=== PATIENT | female | born 1985 | race Caucasian/White ===

== ENCOUNTER 2017-04-15 18:48 | Emergency (ER) | payer OTHER ==
[2017-04-15] MEDS ORDERED: NORMAL SALINE 1000 ML 1,000 ML IV PRN (18:59)
[2017-04-15] MEDS ORDERED: ONDANSETRON HCL INJ/PF 4 MG/2 ML SDV IV ONE (18:59)
[2017-04-15] MEDS ORDERED: KETOROLAC TROMETHAMINE INJ/PF 30 MG/1 ML SDV IV ONE (18:59)
--- NOTE | 2017-04-15 18:59 | ER Document Report ---
ED Medical Screen (RME) - General Chief Complaint: Abdominal Pain Stated Complaint: ABDOMINAL PAIN,BACK PAIN,VOMITING Time Seen by Provider: 04/15/17 18:57 Mode of Arrival: Ambulatory Information source: Patient TRAVEL OUTSIDE OF THE [place] IN LAST 30 DAYS: No - HPI Patient complains to provider of: Left flank pain Onset: This afternoon Associated Symptoms: Nausea, Vomiting Notes: 04/15/17 18:59 Patient is a 32-year-old female presenting to the emergency room for left-sided flank pain that started a few hours prior to arrival and is associated with nausea and vomiting, with pain radiating down into her vaginal area - Related Data Allergies/Adverse Reactions: No Known Allergies Allergy (Verified 04/15/17 18:52) Past Medical History - Past Medical History Cardiac Medical History: Denies: Hx Coronary Artery Disease, Hx Heart Attack, Hx Hypertension Pulmonary Medical History: Denies: Hx Asthma, Hx Bronchitis, Hx COPD, Hx Pneumonia Neurological Medical History: Denies: Hx Cerebrovascular Accident, Hx Seizures Renal/ Medical History: Denies: Hx Peritoneal Dialysis Musculoskeltal Medical History: Denies Hx Arthritis - Immunizations Hx Diphtheria, Pertussis, Tetanus Vaccination: Yes Physical Exam - Vital signs Vitals: Pulse Resp BP Pulse Ox 62 26 H 129/79 H 100 04/15/17 18:53 04/15/17 18:53 04/15/17 18:53 04/15/17 18:53 Course - Vital Signs Vital signs: Temp Pulse Resp BP Pulse Ox 62 26 H 129/79 H 100 04/15/17 18:53 04/15/17 18:53 04/15/17 18:53 04/15/17 18:53
[2017-04-15 19:44] LABS: ABSOLUTE BASOPHILS # (AUTO) 0.1 10^3/uL (0.0-0.2); ABSOLUTE EOSINOPHILS # (AUTO) 0.2 10^3/uL (0.0-0.6); ABSOLUTE LYMPHOCYTES (AUTO) 2.4 10^3/uL (0.5-4.7); ABSOLUTE MONOCYTES (AUTO) 0.7 10^3/uL (0.1-1.4); ABSOLUTE NEUT (AUTO) 8.1 10^3/uL (1.7-8.2); BASOPHILS % (AUTO) 0.7 % (0-2); EOSINOPHILS % (AUTO) 1.4 % (0-6); HEMATOCRIT 38.8 % (36.0-47.0); HEMOGLOBIN 13.4 g/dL (12.0-15.5); HGB HCT DIFFERENCE 1.4; LYMPHOCYTES % (AUTO) 20.7 % (13-45); MEAN CORPUSCULAR HEMOGLOBIN 29.4 pg (27.0-33.4); MEAN CORPUSCULAR HGB CONC 34.4 g/dL (32.0-36.0); MEAN CORPUSCULAR VOLUME 85 fl (80-97); MONOCYTES % (AUTO) 5.9 % (3-13); RED BLOOD COUNT 4.55 10^6/uL (3.72-5.28); RED CELL DISTRIBUTION WIDTH 12.7 % (11.5-14.0); SEGMENTED NEUTROPHILS % (AUTO) 71.3 % (42-78); WHITE BLOOD COUNT 11.4 10^3/uL (4.0-10.5)
[2017-04-15 19:57] LABS: ALANINE AMINOTRANSFERASE 21 U/L (9-52); ALBUMIN 4.3 g/dL (3.5-5.0); ALKALINE PHOSPHATASE 76 U/L (38-126); ANION GAP 15 (5-19); ASPARTATE AMINO TRANSFERASE 20 U/L (14-36); BILIRUBIN,DIRECT 0.4 mg/dL (0.0-0.4); BILIRUBIN,TOTAL 0.7 mg/dL (0.2-1.3); BLOOD UREA NITROGEN 9 mg/dL (7-20); CALCIUM 9.8 mg/dL (8.4-10.2); CARBON DIOXIDE 22 mmol/L (22-30); CHLORIDE 105 mmol/L (98-107); CREATININE RESULT 1.01 mg/dL (0.52-1.25); GLUCOSE 114 mg/dL (75-110); LIPASE 96.6 U/L (23-300); POTASSIUM 3.7 mmol/L (3.6-5.0); SODIUM 141.7 mmol/L (137-145); TOTAL PROTEIN 7.6 g/dL (6.3-8.2)
[2017-04-15 20:35] LABS: AMORPHOUS SEDIMENT,URINE TRACE /HPF; APPEARANCE,URINE CLOUDY; BILIRUBIN,URINE NEGATIVE (NEGATIVE); GLUCOSE, URINE NEGATIVE (NEGATIVE); KETONES,URINE TRACE mg/dL (NEGATIVE); LEUKOCYTE ESTERASE,URINE NEGATIVE (NEGATIVE); NITRITE,URINE NEGATIVE (NEGATIVE); PROTEIN,URINE 100 mg/dL (NEGATIVE); URINE SPECIFIC GRAVITY 1.028; UROBILINOGEN,URINE NEGATIVE mg/dL (<2.0)
--- NOTE | 2017-04-15 20:36 | ER Document Report ---
ED General - General Chief Complaint: Abdominal Pain Stated Complaint: ABDOMINAL PAIN,BACK PAIN,VOMITING Time Seen by Provider: 04/15/17 18:57 Mode of Arrival: Ambulatory Notes: Patient is a 32-year-old female without past medical history, no prior surgical history who presents with acute onset of lower abdominal cramping and vaginal pain. States this started abruptly around 4:00 in the afternoon and has moderately dissipated since that time. States she has had one similar episode in the past that was thought to be due to a NuvaRing. She did remove the NuvaRing today but did not have any improvement of that pain. The pain is described as a cramping, stabbing, moderate to severe pain in her lower abdomen radiating into her vagina. She denies any vaginal bleeding or discharge. No dysuria or hematuria. She denies any fever or constitutional symptoms. She was seen in [facility] for these symptoms in the past. TRAVEL OUTSIDE OF THE [place] IN LAST 30 DAYS: No - Related Data Allergies/Adverse Reactions: No Known Allergies Allergy (Verified 04/15/17 18:52) Past Medical History - General Information source: Patient - Social History Smoking Status: Never Smoker Frequency of alcohol use: None Drug Abuse: None Lives with: Spouse/Significant other Family History: Reviewed & Not Pertinent - Past Medical History Cardiac Medical History: Denies: Hx Coronary Artery Disease, Hx Heart Attack, Hx Hypertension Pulmonary Medical History: Denies: Hx Asthma, Hx Bronchitis, Hx COPD, Hx Pneumonia Neurological Medical History: Denies: Hx Cerebrovascular Accident, Hx Seizures Renal/ Medical History: Denies: Hx Peritoneal Dialysis Musculoskeltal Medical History: Denies Hx Arthritis Past Surgical History: Reports: Hx Orthopedic Surgery - Right Knee x8 - Immunizations Hx Diphtheria, Pertussis, Tetanus Vaccination: Yes Review of Systems - Review of Systems Notes: Constitutional: Negative for fever. HENT: Negative for sore throat. Eyes: Negative for visual changes. Cardiovascular: Negative for chest pain. Respiratory: Negative for shortness of breath. Gastrointestinal: Positive for lower abdominal pain Genitourinary: Positive for vaginal pain Musculoskeletal: Negative for back pain. Skin: Negative for rash. Neurological: Negative for headaches, weakness or numbness. 10 point ROS negative except as marked above and in HPI. Physical Exam - Vital signs Vitals: Pulse Resp BP Pulse Ox 62 26 H 129/79 H 100 04/15/17 18:53 04/15/17 18:53 04/15/17 18:53 04/15/17 18:53 Interpretation: Tachypneic Notes: PHYSICAL EXAMINATION: GENERAL: Well-appearing, well-nourished and in no acute distress. HEAD: Atraumatic, normocephalic. EYES: Pupils equal round and reactive to light, extraocular movements intact, sclera anicteric, conjunctiva are normal. ENT: nares patent, oropharynx clear without exudates. Moist mucous membranes. NECK: Normal range of motion, supple without lymphadenopathy LUNGS: Breath sounds clear to auscultation bilaterally and equal. No wheezes rales or rhonchi. HEART: Regular rate and rhythm without murmurs ABDOMEN: Soft, nontender, normoactive bowel sounds. No guarding, no rebound. No masses appreciated. : Scant vaginal discharge. No cervical motion tenderness. No focal adnexal or suprapubic tenderness. EXTREMITIES: Normal range of motion, no pitting or edema. No cyanosis. NEUROLOGICAL: No focal neurological deficits. Moves all extremities spontaneously and on command. PSYCH: Normal mood, normal affect. SKIN: Warm, Dry, normal turgor, no rashes or lesions noted. Course - Re-evaluation Re-evalutation: 04/15/17 20:35 Patient presents with acute onset of suprapubic and low back pain several hours prior to arrival. Vitals at time of assessment are within normal limits without a fever, tachycardia or hypotension. Abdominal exam is without any focal tenderness. She has no tenderness in the right lower quadrant, left lower quadrant or right upper quadrant. Mild suprapubic abdominal tenderness on palpation. Bedside ultrasound does not show any urine in the bladder and patient states she has an urge to urinate but is unable to do so. She last urinated 5 hours ago. She has no flank tenderness. She has had a history of similar symptoms in the past but was mostly localized to the vagina and did resolve after removal of the NuvaRing. She again removed the NuvaRing today and did not have any relief of her pain. Differential diagnosis includes possible pelvic inflammatory disease, ovarian cyst, less likely acute ovarian torsion, cystitis, pyelonephritis or nephrolithiasis. Will await labs, perform pelvic exam, transvaginal ultrasound and reassess. 04/15/17 22:42 Transvaginal ultrasound is unremarkable. Labs all unremarkable. Patient's pain remains improved. She is urinated here without any difficulty. At this time the exact etiology of her abdominal pain and vaginal pain is unclear but may be related to pelvic muscle spasming. I have had a risks and benefits conversation with the patient regarding CT imaging of the abdomen and pelvis at this time. We discussed, based on today's exam and labs there is a possibility that they could have a diagnosis that could be better clarified by CT and that this could possibly manager change. We discussed the risks of radiation to the abdomen and pelvis. We discussed the alternative of close follow-up with their primary care physician for a recheck of the abdomen within 24 hours as well as reasons to return to the emergency department. After this conversation , the patient has elected to avoid CT imaging of the abdomen and pelvis at this time. They have capacity. They have verbalized the importance of close follow- up as well as reasons to return to the emergency department including worsening abdominal pain, fever, persistent vomiting, or any other symptoms that are worrisome to them. - Vital Signs Vital signs: Temp Pulse Resp BP Pulse Ox 98.9 F 64 16 124/75 97 04/15/17 22:45 04/15/17 22:45 04/15/17 22:45 04/15/17 22:45 04/15/17 22:45 - Laboratory Result Diagrams: 04/15/17 19:35 04/15/17 17:23 Laboratory results interpreted by me: 04/15/17 04/15/17 04/15/17 17:23 19:35 20:05 WBC 11.4 H Glucose 114 H Urine Protein 100 H Urine Ketones TRACE H Urine Ascorbic Acid 40 H - Diagnostic Test Radiology reviewed: Reports reviewed Discharge - Discharge Clinical Impression: Vaginal pain, Lower abdominal pain Condition: Good Disposition: HOME, SELF-CARE Additional Instructions: You have been seen in the Emergency Department (ED) for abdominal pain. Your evaluation did not identify a clear cause of your symptoms but was generally reassuring. For your pain: Take ibuprofen 600 mg and acetaminophen 1000 mg every 6 hours together as needed for pain. Please follow up with your doctor as soon as possible regarding today's emergent visit and the symptoms that are bothering you. Return to the ED if your abdominal pain worsens or fails to improve, you develop bloody vomiting, bloody diarrhea, you are unable to tolerate fluids due to vomiting, fever greater than 101, or other symptoms that concern you. Referrals: WAYNE GREEN MD [ACTIVE STAFF] - Follow up in 3-5 days
--- NOTE | 2017-04-15 22:13 | RADIOLOGY REPORT (SQ) ---
EXAM DESCRIPTION: U/S NON OB PEL TV W/DOPPLER COMPLETED DATE/TIME: 04/15/2017 10:01 pm REASON FOR STUDY: lower abdominal pain, vaginal pain COMPARISON: None. TECHNIQUE: Dynamic and static grayscale images acquired of the pelvis via transvaginal approach and recorded on PACS. Additional selected color Doppler and spectral images recorded. LIMITATIONS: None. FINDINGS: UTERUS: Contour normal. No mass. ENDOMETRIAL STRIPE: No focal or generalized thickening. No masses. CERVIX: No nabothian cysts. RIGHT OVARY: No abnormal masses. RIGHT OVARY DOPPLER: Normal arterial vascular flow without evidence for torsion. LEFT OVARY: No abnormal masses. LEFT OVARY DOPPLER: Normal arterial vascular flow without evidence for torsion. FREE FLUID: None noted. OTHER: No other significant finding. MEASUREMENTS: UTERUS: 7.2 x 4.3 x 2.9 cm ENDOMETRIAL STRIPE: 1.2 mm RIGHT OVARY: 2.4 x 2.0 x 2.3 cm LEFT OVARY: 2.7 x 2.3 x 1.9 cm IMPRESSION: NORMAL TRANSVAGINAL PELVIC ULTRASOUND. TECHNICAL DOCUMENTATION: JOB ID: [id number] [facility]- All Rights Reserved
[2017-04-15 22:23] LABS: CHLAM PCR NOT DETECTED (NOT DETECT)
[2017-04-15 22:46] VITALS: BP 124/75
== END 2017-04-15 22:52 | disposition home or self-care (01) ==
LOC: ER 18:48
DX: R10.30 Lower abdominal pain, unspecified (principal); R10.2 Pelvic and perineal pain; R10.9 Unspecified abdominal pain; M54.9 Dorsalgia, unspecified; R11.10 Vomiting, unspecified
CPT/HCPCS: 99284; 96361; 96374; 96375; 36415; 87086; 87210; 83690; 84703; 85025; 80053; 81001; 87491; 87591; 76830; 93976; J1885; J2405; J7030

== ENCOUNTER 2018-06-23 05:23 | Outpatient (CLI) | payer OTHER ==
[2018-06-23 05:52] LABS: APPEARANCE,URINE SLIGHTLY-CLOUDY; BILIRUBIN,URINE NEGATIVE (NEGATIVE); COLOR,URINE YELLOW; GLUCOSE, URINE NEGATIVE (NEGATIVE); KETONES,URINE NEGATIVE (NEGATIVE); LEUKOCYTE ESTERASE,URINE NEGATIVE (NEGATIVE); NITRITE,URINE NEGATIVE (NEGATIVE); PROTEIN,URINE NEGATIVE (NEGATIVE); URINE SPECIFIC GRAVITY 1.005; UROBILINOGEN,URINE NEGATIVE mg/dL (<2.0)
[2018-06-23 06:07] LABS: URINE AMPHETAMINES SCREEN NEGATIVE; URINE BARBITURATES SCREEN NEGATIVE; URINE BENZODIAZEPINES SCREEN NEGATIVE; URINE COCAINE SCREEN NEGATIVE; URINE MARIJUANA (THC) SCREEN NEGATIVE; URINE METHADONE SCREEN NEGATIVE; URINE PHENCYCLIDINE SCREEN NEGATIVE
== END 2018-06-23 06:28 | disposition home or self-care (01) ==
LOC: LC 05:23
PROVIDERS: ATTEND Obstetrics & Gynecology
PROC: 4A1HXCZ Monitoring of Products of Conception, Cardiac Rate, External Approach (ICD-10-PCS; principal; 2018-06-23)
DX: O36.8130 Decreased fetal movements, third trimester, not applicable or unspecified (principal); Z3A.38 38 weeks gestation of pregnancy
CPT/HCPCS: 59025; 80307; 81005

== ENCOUNTER 2018-07-04 11:14 | Outpatient (CLI) | payer OTHER ==
--- NOTE | 2018-07-04 11:27 | Non Stress Test Report ---
Non Stress Test Datetime Report Generated by CPN: 07/04/2018 11:27 DEMOGRAPHIC Test Number: 1 EGA NST: 38.3 INDICATION Indication for Study: Decreased Movement; Ordered by Provider VITAL SIGNS Temperature - NST: 98.3 Pulse - NST: 77 RESP - NST: 18 NBPSYS NST: 112 NBPDIA NST: 67 MONITORING Monitor Explained: Monitor Explained; Test Explained; Patient Verbalized Understanding Time on Monitor: 06/23/2018 05:45 Time off Monitor: 06/23/2018 06:20 NST Duration: 35 NST INTERVENTIONS NST Interventions: PO Hydration BABY A: [id number] Movement : Decreased Contraction Frequency : 0 Contraction Frequency : none FHR Baseline : 135 Accelerations : 15X15 Decelerations : None Variability : Moderate 6-25bpm NST Review: Meets Criteria for Reactive NST NST Review: Meets Criteria for Reactive NST NST Review: Meets Criteria for Reactive NST NST Review and Verified By : SABRINA BLACKT Review and Verified By : RN Kossmann NST Results: Reactive NST Results: Reactive NST REPORT Report Trigger: Send Report
== END 2018-07-04 12:29 | disposition home or self-care (01) ==
LOC: LC 11:14
PROVIDERS: ATTEND Student in an Organized Health Care Education/Training Program
PROC: 4A1HXCZ Monitoring of Products of Conception, Cardiac Rate, External Approach (ICD-10-PCS; principal; 2018-07-04)
DX: Z34.93 Encounter for supervision of normal pregnancy, unspecified, third trimester (principal); Z3A.40 40 weeks gestation of pregnancy
CPT/HCPCS: 59025

== ENCOUNTER 2018-07-04 17:21 | Inpatient (IN) | payer OTHER ==
[2018-07-04] MEDS ORDERED: DINOPROSTONE 10 MG VAGINAL INSERT.SR PV PRN (20:05)
[2018-07-04] MEDS ORDERED: RINGERS SOLUTION,LACTATED 1,000 ML IV ONE (20:05)
--- NOTE | 2018-07-04 20:28 | Admission Physical ---
Datetime Report Generated by CPN: 07/04/2018 20:28 CURRENT ADMISSION Chief Complaint: Scheduled Induction of Labor Indication for Induction: Oligohydramnios Admit Impression : Term, Intrauterine ; No Active Labor; Intact Membranes; Induction of Labor Admit Plan: Admit to Unit; Initiate Labor Induction Protocol ALLERGIES Medication Allergies: No Medication Allergies: No Known Allergies (06/23/2018) Latex: No Latex Allergies OBSTETRICAL HISTORY EDC: 07/04/2018 00:00 : 2 Para: 1 Term: 1 : 0 SAB: 0 IAB: 0 Ectopic: 0 Livin Cesareans: 0 VBACs: 0 Multiple Births: 0 ART Treatment: No Hx Loss/Stillborn: No Depression/PP Depression: No Current Procedures: Ultrasound; NST Obstetrical History Comments: G1 - 06/20/16- 39.5wk Male infant, 7lbs 1oz G2 - SEE RECORDS Alcohol: No Marijuana : No Cocaine: No Other Illicit Drugs: No Cigarettes: Never Smoker. 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 Hx of abnormal paps, colp, CKC INFECTIOUS HISTORY Gonorrhea: No Genital Herpes: No Chlamydia: No Tuberculosis: No Syphilis: No Hepatitis: No HIV/AIDS Exposure: No Rash or Viral Illness: No HPV: No PHYSICAL EXAM General: Normal HEENT: Normal Neurologic: Normal Thyroid: Deferred Heart: Normal Lungs: Normal Breast: Deferred Back: Normal Abdomen: Normal Genitourinary Exam: Normal Extremities: Normal DTRs: Normal Pelvic Type: Adequate Vital Signs: Reviewed VAGINAL EXAM Dilatation: 1 Effacement: 0 Station: -3 Contraction Comments: none MEMBRANES Membranes: Intact FETUS A EGA: 40.0 Monitoring: External US FHR- Baseline: 145 Variability: Moderate 6-25bpm Accelerations: 15X15 Decelerations: None FHR Category: Category I Presentation: Vertex Admit Comment: 33yo at 40+0ega presents for scheduled IOL due to low ramón (SDP is 3). Follows [facility] due to EPDS 15 at 28wks. 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 GBS negative. Admit for cervidil based on cervical exam in office. Anticipate . Reassuring FWB. PLANS FOR LABOR AND DELIVERY Labor and Delivery: None Pain Management: Natural Feeding Preference: Both Circumcision: N/A INFORMED CONSENT Informed Consent Obtained: Vaginal Delivery; Risks, Benefits and Alternatives Discussed Signature: with User ID: [email or web address]
[2018-07-04] MEDS ORDERED: ACETAMINOPHEN 325 MG TABLET PO PRN (20:34)
[2018-07-04 20:35] LABS: ABSOLUTE EOSINOPHILS # (AUTO) 0.2 10^3/uL (0.0-0.6); ABSOLUTE LYMPHOCYTES (AUTO) 2.5 10^3/uL (0.5-4.7); ABSOLUTE NEUT (AUTO) 8.6 10^3/uL (1.7-8.2); BASOPHILS % (AUTO) 0.2 % (0-2); EOSINOPHILS % (AUTO) 1.5 % (0-6); HEMATOCRIT 33.6 % (36.0-47.0); HEMOGLOBIN 11.7 g/dL (12.0-15.5); LYMPHOCYTES % (AUTO) 20.3 % (13-45); MEAN CORPUSCULAR HEMOGLOBIN 30.2 pg (27.0-33.4); MEAN CORPUSCULAR HGB CONC 34.8 g/dL (32.0-36.0); MEAN CORPUSCULAR VOLUME 87 fl (80-97); MONOCYTES % (AUTO) 7.8 % (3-13); PLATELET COUNT 213 10^3/uL (150-450); RED BLOOD COUNT 3.87 10^6/uL (3.72-5.28); RED CELL DISTRIBUTION WIDTH 14.3 % (11.5-14.0); SEGMENTED NEUTROPHILS % (AUTO) 70.2 % (42-78); TOTAL CELLS COUNTED % (AUTO) 100 %; WHITE BLOOD COUNT 12.2 10^3/uL (4.0-10.5)
[2018-07-04] MEDS: RINGERS SOLUTION,LACTATED 1,000 ML IV PRN (20:40)
[2018-07-04 20:41] LABS: APPEARANCE,URINE SLIGHTLY-CLOUDY; BILIRUBIN,URINE NEGATIVE (NEGATIVE); COLOR,URINE YELLOW; GLUCOSE, URINE NEGATIVE (NEGATIVE); KETONES,URINE NEGATIVE (NEGATIVE); LEUKOCYTE ESTERASE,URINE NEGATIVE (NEGATIVE); NITRITE,URINE NEGATIVE (NEGATIVE); PROTEIN,URINE NEGATIVE (NEGATIVE); URINE SPECIFIC GRAVITY 1.008; UROBILINOGEN,URINE NEGATIVE mg/dL (<2.0)
[2018-07-04] MEDS ORDERED: DINOPROSTONE 10 MG VAGINAL INSERT.SR ONE (20:53)
[2018-07-04] MEDS ORDERED: ZOLPIDEM TARTRATE 5 MG TABLET PO ONE (20:55)
[2018-07-04 20:57] LABS: URINE AMPHETAMINES SCREEN NEGATIVE; URINE BARBITURATES SCREEN NEGATIVE; URINE BENZODIAZEPINES SCREEN NEGATIVE; URINE COCAINE SCREEN NEGATIVE; URINE MARIJUANA (THC) SCREEN NEGATIVE; URINE METHADONE SCREEN NEGATIVE; URINE PHENCYCLIDINE SCREEN NEGATIVE
[2018-07-04] MEDS ORDERED: ZOLPIDEM TARTRATE 5 MG TABLET ONE (20:58)
[2018-07-05] MEDS: RINGERS SOLUTION,LACTATED 1,000 ML IV PRN ×3 (05:48→18:11)
--- NOTE | 2018-07-05 11:14 | L&D Progress Notes ---
PROGRESS NOTES Datetime Report Generated by CPN: 07/05/2018 11:13 PROGRESS NOTE Impression: Reassuring Heart Rate Plan: Induction Informed Consent Obtained: Vaginal Delivery Informed Consent Obtained: Vaginal Delivery; Risks, Benefits and Alternatives Discussed Comment: VE= 1/70/vtx/-2, did not tolerate exam well does not want epidural Cat 1 strip Start Pitocin VAGINAL EXAM Dilatation: 1 Effacement: 0 Station: -3 Contractions: none LAST VAGINAL EXAM-NURSING Dilitation: 1.0 Dilitation: 0.0 Effacement: 70 Effacement: thick Station: -2 Station: high Contractions: Pt denies UCs. MEMBRANES Membranes: Intact FETUS A Monitoring: External US Presentation: Vertex SIGNATURE SIGNATURE: [id number];[id number];[id number] SIGNATURE: [id number];14,[id number] SIGNATURE: [id number] Assignment: Miryam Gamble MD Signature: with User ID: [email or web address] : with User ID: [email or web address]
[2018-07-05] MEDS ORDERED: OXYTOCIN/NORMAL SALINE 20 UNIT/1,000 ML RTUINJ ONE (11:20)
[2018-07-05] MEDS ORDERED: FAMOTIDINE 20 MG TABLET PO ONE (12:26)
[2018-07-05] MEDS ORDERED: FAMOTIDINE 20 MG TABLET ONE (12:32)
[2018-07-05] MEDS ORDERED: MISOPROSTOL 0.2 MG TABLET ONE (13:37)
[2018-07-05] MEDS ORDERED: LIDOCAINE 1% INJ-PF (10 MG/ML) 30 ML SDV ONE (13:37)
--- NOTE | 2018-07-05 14:01 | L&D Progress Notes ---
PROGRESS NOTES Datetime Report Generated by CPN: 07/05/2018 14:01 PROGRESS NOTE Impression: Normal Progression of Labor; Reassuring Heart Rate Procedures: Artificial ROM; Sterile Vag Exam Plan: Continue Present Management; Induction; Anticipate Vaginal Delivery Comment: VE= 270/vtx/0, FSE applied, no fluid, uc's q 3 min, breathing with uc's Cat 1 strip VAGINAL EXAM Dilitation: 2.0 Effacement: 70 Station: -1 FETUS C SIGNATURE: [id number];14,[id number];10,[id number] Assignment: Miryam Gamble MD Signature: with User ID: Nydia : with User ID: [email or web address]
[2018-07-05] MEDS ORDERED: NALBUPHINE HCL INJ 10 MG/1 ML AMPULE ONE (14:31)
[2018-07-05] MEDS ORDERED: NALBUPHINE HCL INJ 10 MG/1 ML AMPULE INJ ONE (14:32)
--- NOTE | 2018-07-05 16:26 | L&D Progress Notes ---
PROGRESS NOTES Datetime Report Generated by CPN: 07/05/2018 16:25 PROGRESS NOTE Procedures: Sterile Vag Exam Plan: Induction Vital Signs : Reviewed; Within Normal Limits Comment: moaning with uc's, variables with each uc, declines epidural, VE 5/100/vtx.-2 VAGINAL EXAM Dilitation: 5.0 Dilitation: 4.0 Effacement: 100 Effacement: 80 Station: -1 Station: -1 FETUS A Monitoring: External US Decelerations: Variable FETUS C SIGNATURE: [id number];[id number];13,[id number] Assignment: Miryam Gamble MD Signature: with User ID: [email or web address] : with User ID: [email or web address]
--- NOTE | 2018-07-05 17:01 | L&D Progress Notes ---
PROGRESS NOTES Datetime Report Generated by CPN: 07/05/2018 17:01 PROGRESS NOTE Comment: Pitocin turned off, O2 via mask, placed in knee chest, IVF, for deep variables and early decelerations, mod variability requesting epidural, hsb at BS FETUS C SIGNATURE: [id number];[id number];10,[id number] Assignment: Miryam Gamble MD Signature: with User ID: [email or web address] : with User ID: [email or web address]
[2018-07-05] MEDS ORDERED: FENTANYL/BUPIVACAINE/NS/PF 300 MCG/150 ML RTUINJ EPI ONE (17:15)
[2018-07-05] MEDS ORDERED: EPHEDRINE SULFATE INJ 50 MG/1 ML AMPULE ONE (17:15)
[2018-07-05] MEDS ORDERED: BUPIVACAINE HCL 0.5 % INJ/PF 30 ML SDV ONE (17:15)
[2018-07-05] MEDS ORDERED: ACETAMINOPHEN WITH CODEINE #3 TABLET PO PRN (20:19)
[2018-07-05] MEDS ORDERED: OXYTOCIN/NORMAL SALINE 20 UNIT/1,000 ML RTUINJ IV PRN (20:19)
[2018-07-05] MEDS ORDERED: ZOLPIDEM TARTRATE 5 MG TABLET PO PRN (20:19)
[2018-07-05] MEDS ORDERED: MEASLES,MUMPS&RUBELLA VACC/PF 0.5 ML VIAL SUBCUT PRN (20:19)
[2018-07-05] MEDS ORDERED: DIBUCAINE 1% OINTMENT 28 GM TP PRN (20:19)
[2018-07-05] MEDS ORDERED: BENZOCAINE/MENTHOL AEROSOL SPRAY 56 ML TOP PRN (20:19)
[2018-07-05] MEDS ORDERED: DIPH/PERTUSS(ACELL)/TETANUS VAC/PF 0.5 ML SYR (>=10YO) IM PRN (20:19)
--- NOTE | 2018-07-05 22:09 | Delivery Summary ---
Del Sum A-C Datetime Report Generated by CPN: 07/05/2018 22:08 DELIVERY PERSONNEL DELIVERY PERSONNEL: [id number] Delivery Doctor:: Miryam Gamble MD Labor and Delivery Nurse:: Ana M Potts RN Labor and Delivery Nurse:: Evelyn Mclain RN Manager Clinical/PRECINCT CAPTAIN: Alex Ertel, PRECINCT CAPTAIN MATERNAL INFORMATION Delivery Anesthesia: Epidural Medications After Delivery: Pitocin Drip 20 Units/1000ml NSS Estimated Blood Loss (ml): 50 ml Maternal Complications: None Provider Comments: of a viable female at 1957 with an OA presentation; APGARS 8,9; No lacerations LABOR SUMMARY EDC: 07/04/2018 00:00 No. Babies in Womb: 1 Attempted: No Labor Anesthesia: Epidural LABOR INFORMATION Reason for Induction: Oligohydramnios Onset of Labor: 07/05/2018 11:30 Complete Dilatation: 07/05/2018 19:41 Cervical Ripening Agents: Cervidil Oxytocin: Induction Group B Beta Strep: Negative Antibiotics # of Doses: 0 Steroids Given: None Reason Steroids Not Administered: Not Applicable MEMBRANES Membranes Rupture Method: Artificial Rupture of Membranes: 07/05/2018 13:49 Length of Rupture (hr): 6.17 Amniotic Fluid Color: Clear Amniotic Fluid Amount: None Amniotic Fluid Odor: Normal STAGES OF LABOR Stage 1 hr: 8 Stage 1 min: 11 Stage 2 hr: 0 Stage 2 min: 18 Stage 3 hr: 0 Stage 3 min: 5 Total Time in Labor hr: 8 Total Time in Labor min: 34 VAGINAL DELIVERY Episiotomy: None Laceration #1: None Laceration Extension #1: N/A Laceration Repair: Not Applicable Sponge Count Correct: N/A Sharps Count Correct: N/A CSECTION DELIVERY Primary Indication: N/A Secondary Indication: N/A CSection Incidence: N/A Labor: N/A Elective: N/A CSection Incision: N/A BABY A INFORMATION Infant Delivery Date/Time: 07/05/2018 19:59 Method of Delivery: Vaginal Born in Route : No : N/A Forceps: N/A Vacuum Extraction: N/A Shoulder Dystocia : No PRESENTATION/POSITION BABY A Presentation: Cephalic Cephalic Presentation: Vertex Vertex Position: Left Occipital Anterior Breech Presentation: N/A PLACENTA INFORMATION BABY A Placenta Delivery Time : 07/05/2018 20:04 Placenta Method of Delivery: Spontaneous Placenta Status: Delivered SCORES BABY A Heart Rate 1 min: >100 bpm Resp Effort 1 min: Good Cry Reflex Irritability 1 min: Cough or Sneeze or Pulls Away Muscle Tone 1 min: Active Motion Color 1 min: Blue/Pale Resuscitation Effort 1 min: Tactile Stimulation SCORE 1 MIN: 8 Heart Rate 5 min: >100 bpm Resp Effort 5 min: Good Cry Reflex Irritability 5 min: Cough or Sneeze or Pulls Away Muscle Tone 5 min: Active Motion Color 5 min: Body [place], Extremities Blue Resuscitation Effort 5 min: Tactile Stimulation SCORE 5 MIN: 9 INFORMATION BABY A Gestational Age at Delivery: 40.1 Gestational Status: Full Term- 39- 40.6 Weeks Infant Outcome : Liveborn Condition : Stable Sex: Female IDENTIFICATION BABY A Infant Verification Date/Time: 07/05/2018 20:27 ID Band Number: [id number] Mother's Name Verified: Yes Infant RN Verifying : Marycarmen Potts, RNC _ Alicia Antony, RN WEIGHT/LENGTH BABY A Infant Birthweight (gm): 3490 Infant Weight (lb): 7 Weight (oz): 11 Infant Length (in): 19.50 Length (cm): 49.53 CORD INFORMATION BABY A No. Cord Vessels: 3 Nuchal Cord : N/A Cord Blood Taken: Yes-For Eval (Mom's Blood Type - or O+) Infant Suction: Mouth; Nose ASSESSMENT BABY A Complications: Oligohydramnios Physical Findings at Delivery: Within Normal Limits Respirations: Appears Normal Skin to Skin: Yes Referral Agent/ALS Called : No Care By: Anibal Mclain RN Transferred To: Remains with Mother BABY B INFORMATION : N/A SIGNATURES Signature: with User ID: [email or web address]
[2018-07-05] MEDS: IBUPROFEN 800 MG TABLET PO SCH (22:50)
[2018-07-06] MEDS: ACETAMINOPHEN WITH CODEINE #3 TABLET PO PRN ×2 (02:29→09:55)
[2018-07-06] MEDS: IBUPROFEN 800 MG TABLET PO SCH ×3 (05:01→21:47)
[2018-07-06 07:22] LABS: HEMATOCRIT 31.6 % (36.0-47.0); HEMOGLOBIN 11.1 g/dL (12.0-15.5); MEAN CORPUSCULAR HEMOGLOBIN 30.3 pg (27.0-33.4); MEAN CORPUSCULAR HGB CONC 35.1 g/dL (32.0-36.0); MEAN CORPUSCULAR VOLUME 87 fl (80-97); PLATELET COUNT 194 10^3/uL (150-450); RED BLOOD COUNT 3.65 10^6/uL (3.72-5.28); RED CELL DISTRIBUTION WIDTH 14.1 % (11.5-14.0)
--- NOTE | 2018-07-06 09:22 | PDOC PROGRESS REPORT ---
Subjective-OB Progress Note for:: 07/06/18 Physical Exam (OB) Vital Signs: Temp Pulse Resp BP Pulse Ox 98.0 F 83 20 127/65 H 96 07/06/18 08:36 07/06/18 08:36 07/06/18 08:36 07/06/18 08:36 07/06/18 08:36 Intake & Output 07/05/18 07/06/18 07/07/18 06:59 06:59 06:59 Intake Total 1000 1133 Balance 1000 1133 Weight 99.5 kg - General General Appearance: Alert - Lochia Lochia Amount: Scant < 10 ml Lochia Color: Rubra/Red - Abdomen Description: Tender, Soft Hernia Present: No Flatus Presence: Present Fundal Description: Firm, Midline Fundal Height: u/u - u/2 - Extremities Calf: Normal Objective-Diagnostic Laboratory: 07/06/18 06:52 07/06/18 06:52 WBC 14.0 H RBC 3.65 L Hgb 11.1 L Hct 31.6 L MCV 87 MCH 30.3 MCHC 35.1 RDW 14.1 H Plt Count 194 Assessment and Plan(PN) - Assessment and Plan (1) Oligohydramnios Qualifiers: Fetus number: single or unspecified fetus Trimester: third trimester Qualified Code(s): O41.03X0 - Oligohydramnios, third trimester, not applicable or unspecified Is this a current diagnosis for this admission?: Yes (2) Vaginal delivery Is this a current diagnosis for this admission?: Yes Plan:: vag delivery - Time Spent with Patient Time with patient: Less than 15 minutes Medications reviewed and adjusted accordingly: Yes - Disposition Anticipated Discharge: Home Within: within 24 hours
[2018-07-06] MEDS: PRENATAL VITAMIN W DHA CAPSULE PO SCH (09:53)
[2018-07-06] MEDS: SENNOSIDES/DOCUSATE 8.6-50 MG 1 EACH TABLET PO SCH (09:53)
[2018-07-06] MEDS: DOCUSATE SODIUM 100 MG CAPSULE PO SCH ×2 (09:53→18:39)
[2018-07-06] MEDS: FERROUS SULFATE 325 MG TABLET PO SCH ×2 (09:53→18:39)
[2018-07-07] MEDS: IBUPROFEN 800 MG TABLET PO SCH (05:44)
[2018-07-07 08:29] VITALS: BP 132/78
--- NOTE | 2018-07-07 09:40 | PDOC DISCHARGE SUMMARY ---
Final Diagnosis Discharge Date: 07/07/18 - Final Diagnosis (1) Oligohydramnios Is this a current diagnosis for this admission?: Yes (2) Vaginal delivery Is this a current diagnosis for this admission?: Yes Discharge Data - Discharge Medication Home Medications: Pnv,Calcium 72/Iron/Folic Acid [Pnv Plus Multivit Tab] 1 tab PO DAILY 04/11/16 Reason(s) for Admission: Induction of Labor Procedures: NST Intrapartum Procedure(s): Spontaneous Vaginal Delivery - Diagnosis Test Laboratory: Temp Pulse Resp BP Pulse Ox 98.0 F 74 16 132/78 H 97 07/07/18 07:48 07/07/18 07:48 07/07/18 07:48 07/07/18 07:48 07/07/18 07:48 07/04/18 07/04/18 07/06/18 19:58 20:20 06:52 RBC 3.87 3.65 L Hgb 11.7 L 11.1 L Hct 33.6 L 31.6 L Urine Opiates Screen NEGATIVE - Discharge information/Instructions Discharge Activity: Balance Activity w/Rest, Pelvic Rest Discharge Diet: Regular Disposition: HOME, SELF-CARE Follow up with: [facility] in: 3, 4, Weeks
[2018-07-07] MEDS: PRENATAL VITAMIN W DHA CAPSULE PO SCH (10:29)
[2018-07-07] MEDS: DOCUSATE SODIUM 100 MG CAPSULE PO SCH (10:29)
[2018-07-07] MEDS: FERROUS SULFATE 325 MG TABLET PO SCH (10:29)
[2018-07-07] MEDS: SENNOSIDES/DOCUSATE 8.6-50 MG 1 EACH TABLET PO SCH (10:29)
== END 2018-07-07 14:00 | disposition home or self-care (01) | DRG 807 ==
LOC: LR 19:46 → 2S 07-05 22:15
PROVIDERS: ADMIT Obstetrics & Gynecology; ATTEND Obstetrics & Gynecology
PROC: 10E0XZZ Delivery of Products of Conception, External Approach (ICD-10-PCS; principal; 2018-07-05)
DX: O41.03X0 Oligohydramnios, third trimester, not applicable or unspecified (principal); Z37.0 Single live birth; Z3A.40 40 weeks gestation of pregnancy
CPT/HCPCS: 36415; 80307; 81005; 85025; 85027; 86592; 86850; 86900; 86901; 94760; J2300; J2590; J3010; J3490

== ENCOUNTER 2018-08-11 14:13 | Emergency (ER) | payer OTHER ==
--- NOTE | 2018-08-11 14:32 | ER Document Report ---
ED Medical Screen (RME) - General Chief Complaint: Pain All Over Stated Complaint: BODYACHE Time Seen by Provider: 08/11/18 14:26 Mode of Arrival: Ambulatory Information source: Patient TRAVEL OUTSIDE OF THE [place] IN LAST 30 DAYS: No - HPI Patient complains to provider of: joint stiffness Onset: Other - pt. is 5 weeks and has been having increasing joint stiffnesss in upper and lowe r extremities, neck and back chele. later in the day. - Related Data Allergies/Adverse Reactions: No Known Allergies Allergy (Verified 08/11/18 14:13) Past Medical History - Past Medical History Cardiac Medical History: Denies: Hx Coronary Artery Disease, Hx Heart Attack, Hx Hypertension Pulmonary Medical History: Denies: Hx Asthma, Hx Bronchitis, Hx COPD, Hx Pneumonia Neurological Medical History: Denies: Hx Cerebrovascular Accident, Hx Seizures Renal/ Medical History: Denies: Hx Peritoneal Dialysis Musculoskeltal Medical History: Denies Hx Arthritis Past Surgical History: Reports: Hx Orthopedic Surgery - Right Knee x8 - Immunizations Hx Diphtheria, Pertussis, Tetanus Vaccination: Yes Physical Exam - Vital signs Vitals: Temp Pulse Resp BP Pulse Ox 98 F 76 18 130/87 H 98 08/11/18 14:15 08/11/18 14:15 08/11/18 14:15 08/11/18 14:15 08/11/18 14:15 Course - Vital Signs Vital signs: Temp Pulse Resp BP Pulse Ox 98 F 76 18 130/87 H 98 08/11/18 14:15 08/11/18 14:15 08/11/18 14:15 08/11/18 14:15 08/11/18 14:15
[2018-08-11 15:09] LABS: ABSOLUTE BASOPHILS # (AUTO) 0.1 10^3/uL (0.0-0.2); ABSOLUTE EOSINOPHILS # (AUTO) 0.9 10^3/uL (0.0-0.6); ABSOLUTE LYMPHOCYTES (AUTO) 1.4 10^3/uL (0.5-4.7); ABSOLUTE MONOCYTES (AUTO) 0.6 10^3/uL (0.1-1.4); ABSOLUTE NEUT (AUTO) 6.2 10^3/uL (1.7-8.2); BASOPHILS % (AUTO) 0.7 % (0-2); EOSINOPHILS % (AUTO) 9.5 % (0-6); HEMATOCRIT 39.5 % (36.0-47.0); HEMOGLOBIN 13.4 g/dL (12.0-15.5); LYMPHOCYTES % (AUTO) 15.1 % (13-45); MEAN CORPUSCULAR HEMOGLOBIN 28.9 pg (27.0-33.4); MEAN CORPUSCULAR HGB CONC 33.8 g/dL (32.0-36.0); MEAN CORPUSCULAR VOLUME 86 fl (80-97); MONOCYTES % (AUTO) 6.5 % (3-13); PLATELET COUNT 298 10^3/uL (150-450); RED BLOOD COUNT 4.63 10^6/uL (3.72-5.28); RED CELL DISTRIBUTION WIDTH 13.6 % (11.5-14.0); SEGMENTED NEUTROPHILS % (AUTO) 68.2 % (42-78); TOTAL CELLS COUNTED % (AUTO) 100 %; WHITE BLOOD COUNT 9.1 10^3/uL (4.0-10.5)
[2018-08-11 15:11] LABS: APPEARANCE,URINE SLIGHTLY-CLOUDY; BILIRUBIN,URINE NEGATIVE (NEGATIVE); COLOR,URINE YELLOW; GLUCOSE, URINE NEGATIVE (NEGATIVE); KETONES,URINE NEGATIVE (NEGATIVE); LEUKOCYTE ESTERASE,URINE NEGATIVE (NEGATIVE); NITRITE,URINE NEGATIVE (NEGATIVE); PROTEIN,URINE NEGATIVE (NEGATIVE); URINE SPECIFIC GRAVITY 1.024; UROBILINOGEN,URINE NEGATIVE mg/dL (<2.0)
[2018-08-11 15:19] LABS: ALANINE AMINOTRANSFERASE 18 U/L (9-52); ALBUMIN 3.8 g/dL (3.5-5.0); ALKALINE PHOSPHATASE 113 U/L (38-126); ANION GAP 10 (5-19); ASPARTATE AMINO TRANSFERASE 17 U/L (14-36); BILIRUBIN,DIRECT 0.3 mg/dL (0.0-0.4); BILIRUBIN,TOTAL 0.4 mg/dL (0.2-1.3); BLOOD UREA NITROGEN 9 mg/dL (7-20); CALCIUM 9.6 mg/dL (8.4-10.2); CARBON DIOXIDE 28 mmol/L (22-30); CHLORIDE 106 mmol/L (98-107); GLUCOSE 96 mg/dL (75-110); POTASSIUM 3.8 mmol/L (3.6-5.0); SODIUM 143.6 mmol/L (137-145); TOTAL PROTEIN 6.9 g/dL (6.3-8.2)
[2018-08-11] MEDS ORDERED: KETOROLAC TROMETHAMINE INJ/PF 30 MG/1 ML SDV IV ONE (15:44)
[2018-08-11 15:45] LABS: ERYTHROCYTE SEDIMENTATION RATE 40 mm/hr (0-20)
--- NOTE | 2018-08-11 16:24 | ER Document Report ---
ED General - General Chief Complaint: Pain All Over Stated Complaint: BODYACHE Time Seen by Provider: 08/11/18 14:26 Mode of Arrival: Ambulatory TRAVEL OUTSIDE OF THE [place] IN LAST 30 DAYS: No - HPI Notes: Patient is a 33-year-old female that presents to the emergency department for chief complaint of diffuse joint pain. Patient is 5 weeks . She states for the last week she has had increasing pain in all of her joints at night. She states when she wakes up in the morning and for most of the day she feels completely normal. By the end of the day she feels stiff and achy in all of her joints. She denies any personal or family history of rheumatoid arthritis. She states she was looking on line and is concerned that she may have rheumatoid arthritis. She denies any fevers or chills. She denies any rashes. She denies any direct injury or trauma. There is no single joint that is more affected than another. It is every joint every evening. She does get relief of her pain with ibuprofen. She is currently breast-feeding. Currently she states her pain is minimal but she is worried it will become severe later. Past Medical History: Negative Past Surgical History: Reviewed in chart Social History: Denies drugs alcohol and tobacco Family History: Reviewed and noncontributory for presenting illness Allergies: Reviewed, see documented allergy list. REVIEW OF SYSTEMS: CONSTITUTIONAL : No fever No chills No diaphoresis No recent illness EENT: No vision changes No congestion No sore throat CARDIOVASCULAR: No chest pain No palpitations RESPIRATORY: No shortness of breath No cough No difficulty breathing GASTROINTESTINAL: No abdominal pain No nausea No vomiting No diarrhea GENITOURINARY: No dysuria No hematuria No difficulty urinating MUSCULOSKELETAL: back pain leg pain arm pain SKIN: No rashes No lesions LYMPHATIC: No swollen, enlarged glands. NEUROLOGICAL: No lightheadedness No headache No weakness No paresthesias PSYCHIATRIC: No anxiety No depression PHYSICAL EXAMINATION: Vital signs reviewed, nursing noted reviewed. GENERAL: Well-appearing, well-nourished and in no acute distress. HEAD: Atraumatic, normocephalic. EYES: Eyes appear normal, extraocular movements intact, sclera anicteric, conjunctiva are normal. ENT: nares patent, oropharynx clear without exudates. Moist mucous membranes. NECK: Normal range of motion, supple without lymphadenopathy LUNGS: Breath sounds clear to auscultation bilaterally and equal. No wheezes rales or rhonchi. HEART: Regular rate and rhythm without murmurs ABDOMEN: Soft, nontender, normoactive bowel sounds. No rebound, guarding, or rigidity. No masses appreciated. EXTREMITIES: Nontender, good range of motion, no pitting or edema. NEUROLOGICAL: No focal neurological deficits. Moves all extremities spontaneously Motor and sensory grossly intact on exam. PSYCH: Normal mood, normal affect. SKIN: Warm, Dry, normal turgor, no rashes or lesions noted on exposed skin - Related Data Allergies/Adverse Reactions: No Known Allergies Allergy (Verified 08/11/18 14:13) Past Medical History - General Information source: Patient - Social History Smoking Status: Never Smoker Chew tobacco use (# tins/day): No Frequency of alcohol use: None Family History: Reviewed & Not Pertinent Patient has suicidal ideation: No Patient has homicidal ideation: No - Past Medical History Cardiac Medical History: Denies: Hx Coronary Artery Disease, Hx Heart Attack, Hx Hypertension Pulmonary Medical History: Denies: Hx Asthma, Hx Bronchitis, Hx COPD, Hx Pneumonia Neurological Medical History: Denies: Hx Cerebrovascular Accident, Hx Seizures Renal/ Medical History: Denies: Hx Peritoneal Dialysis Musculoskeletal Medical History: Denies Hx Arthritis Past Surgical History: Reports: Hx Orthopedic Surgery - Right Knee x8 - Immunizations Hx Diphtheria, Pertussis, Tetanus Vaccination: Yes Physical Exam - Vital signs Vitals: Temp Pulse Resp BP Pulse Ox 98 F 76 18 130/87 H 98 08/11/18 14:15 08/11/18 14:15 08/11/18 14:15 08/11/18 14:15 08/11/18 14:15 Course - Re-evaluation Re-evalutation: 08/11/18 16:21 Vitals reviewed. Nursing notes reviewed. Patient has no focal tenderness or joint erythema. She has no rashes. Patient currently is resting comfortably and in no acute distress. She will be given IV hydration and Toradol for symptom medic management. She is breast-feeding and drinking minimal amounts of water. Clinically I am concerned that she is not staying well-hydrated. Her lab work does not show any renal insufficiency or electrolyte derangements. There is no signs of infection. Patient has no focal neurologic deficits and is able to ambulate without difficulty. I advised her to increase oral hydration. She will continue taking ibuprofen for her joint stiffness and aching as needed at home. She will follow with her primary care doctor as already scheduled in August for possible rheumatology referral. She was counseled on symptoms to return to the emergency room including fevers, rashes, focal joint tenderness or new or worsening concerns. She is in agreement with this plan and stable at discharge. Laboratory 08/11/18 08/11/18 08/11/18 14:46 14:46 14:46 WBC 9.1 RBC 4.63 Hgb 13.4 Hct 39.5 MCV 86 MCH 28.9 MCHC 33.8 RDW 13.6 Plt Count 298 Seg Neutrophils % 68.2 Lymphocytes % 15.1 Monocytes % 6.5 Eosinophils % 9.5 H Basophils % 0.7 Absolute Neutrophils 6.2 Absolute Lymphocytes 1.4 Absolute Monocytes 0.6 Absolute Eosinophils 0.9 H Absolute Basophils 0.1 ESR 40 H Sodium 143.6 Potassium 3.8 Chloride 106 Carbon Dioxide 28 Anion Gap 10 BUN 9 Creatinine 0.90 Est GFR ( Amer) > 60 Est GFR (Non-Af Amer) > 60 Glucose 96 Calcium 9.6 Total Bilirubin 0.4 Direct Bilirubin 0.3 Neonat Total Bilirubin Not Reportable Neonat Direct Bilirubin Not Reportable Neonat Indirect Bili Not Reportable AST 17 ALT 18 Alkaline Phosphatase 113 Total Protein 6.9 Albumin 3.8 Urine Color YELLOW Urine Appearance SLIGHTLY-CLOUDY Urine pH 5.0 Ur Specific [place] 1.024 Urine Protein NEGATIVE Urine Glucose (UA) NEGATIVE Urine Ketones NEGATIVE Urine Blood SMALL H Urine Nitrite NEGATIVE Urine Bilirubin NEGATIVE Urine Urobilinogen NEGATIVE Ur Leukocyte Esterase NEGATIVE Urine WBC (Auto) 4 Urine RBC (Auto) 3 U Hyaline Cast (Auto) 1 Urine Bacteria (Auto) TRACE Squamous Epi Cells Auto 8 Urine Mucus (Auto) FEW Urine Ascorbic Acid NEGATIVE - Vital Signs Vital signs: Temp Pulse Resp BP Pulse Ox 98 F 76 18 130/87 H 98 08/11/18 14:15 08/11/18 14:15 08/11/18 14:15 08/11/18 14:15 08/11/18 14:15 - Laboratory Result Diagrams: 08/11/18 14:46 08/11/18 14:46 Laboratory results interpreted by me: 08/11/18 08/11/18 14:46 14:46 Eosinophils % 9.5 H Absolute Eosinophils 0.9 H ESR 40 H Urine Blood SMALL H Discharge - Discharge Clinical Impression: Large joint arthralgia of multiple sites Condition: Stable Disposition: HOME, SELF-CARE Instructions: Arthralgia ([facility]), Dehydration ([facility]) Additional Instructions: Please return to the emergency department if you have any worsening, or concern of your symptoms. Please return to the emergency department if you develop chest pain, difficulty breathing, severe abdominal pain, or ongoing vomiting. Please follow-up with your primary care physician in 2-3 days and any other recommended physicians. If prescribed, take all medications as directed. If you have any questions or concerns do not hesitate to return the emergency department for evaluation. Referrals: ANDREW BUNCH MD [ACTIVE STAFF] - Follow up as needed
[2018-08-11] MEDS: NORMAL SALINE 1000 ML 1,000 ML IV PRN ×2 (16:31→17:21)
[2018-08-11 18:26] VITALS: BP 128/70
== END 2018-08-11 18:24 | disposition home or self-care (01) ==
LOC: ER 14:13
DX: O90.9 Complication of the puerperium, unspecified (principal); M79.10 Myalgia, unspecified site
CPT/HCPCS: 99283; 96361; 96374; 36415; 85025; 85652; 80053; 81001; J1885; J7030

== ENCOUNTER 2018-11-22 08:06 | Day surgery (SDC) | payer OTHER ==
[2018-11-16 11:41] LABS: HEMATOCRIT 39.4 % (36.0-47.0); HEMOGLOBIN 13.6 g/dL (12.0-15.5); MEAN CORPUSCULAR HEMOGLOBIN 29.9 pg (27.0-33.4); MEAN CORPUSCULAR HGB CONC 34.5 g/dL (32.0-36.0); MEAN CORPUSCULAR VOLUME 87 fl (80-97); PLATELET COUNT 303 10^3/uL (150-450); RED BLOOD COUNT 4.55 10^6/uL (3.72-5.28); RED CELL DISTRIBUTION WIDTH 13.4 % (11.5-14.0)
[2018-11-16 11:43] LABS: APPEARANCE,URINE CLEAR; BILIRUBIN,URINE NEGATIVE (NEGATIVE); COLOR,URINE STRAW; GLUCOSE, URINE NEGATIVE (NEGATIVE); KETONES,URINE NEGATIVE (NEGATIVE); LEUKOCYTE ESTERASE,URINE MODERATE (NEGATIVE); NITRITE,URINE NEGATIVE (NEGATIVE); PROTEIN,URINE NEGATIVE (NEGATIVE); UROBILINOGEN,URINE NEGATIVE mg/dL (<2.0)
[~2018-11-22 08:06] MED LIST: LACTATED RINGERS 1000 ML IV PRN; LIDOCAINE 0.5% INJ-PF (5 MG/ML) 50 ML SDV SUBCUT PRN
[2018-11-22] MEDS ORDERED: SCOPOLAMINE HYDROBROMIDE 1.5 MG PATCH.TD72 ONE (09:26)
[2018-11-22] MEDS ORDERED: FAMOTIDINE INJ/PF 20 MG/2 ML SDV IV ONE (09:26)
[2018-11-22] MEDS ORDERED: KETOROLAC TROMETHAMINE 60 MG/2 ML SDV ONE (10:00)
[2018-11-22] MEDS ORDERED: ONDANSETRON HCL INJ/PF 4 MG/2 ML SDV ONE (10:00)
[2018-11-22] MEDS ORDERED: DEXAMETHASONE SOD PHOSPHATE INJ 4 MG/1 ML VIAL ONE (10:00)
[2018-11-22] MEDS ORDERED: SUCCINYLCHOLINE CHLORIDE INJ 200 MG/10 ML VIAL ONE (10:00)
[2018-11-22] MEDS ORDERED: FENTANYL CITRATE INJ/PF 100 MCG/2 ML AMPUL ONE (10:13)
[2018-11-22] MEDS ORDERED: MIDAZOLAM 2 MG/2 ML INJ ONE (10:13)
[2018-11-22] MEDS ORDERED: ACETAMINOPHEN 1,000 MG/100 ML RTUPB IV ONE (10:13)
[2018-11-22] MEDS ORDERED: PROPOFOL INJ 200 MG/20 ML VIAL IV ONE (10:13)
[2018-11-22] MEDS ORDERED: ONDANSETRON HCL INJ/PF 4 MG/2 ML SDV IV PRN (10:45)
[2018-11-22] MEDS ORDERED: MORPHINE SULFATE 10 MG/ML INJ IV PRN (10:45)
[2018-11-22] MEDS ORDERED: DIPHENHYDRAMINE HCL 50 MG/ML VIAL IV PRN (10:45)
[2018-11-22] MEDS ORDERED: FENTANYL CITRATE INJ/PF 100 MCG/2 ML AMPUL IV PRN ×3 (10:45)
[2018-11-22] MEDS ORDERED: PROMETHAZINE HCL INJ 25 MG/1 ML VIAL IV PRN (10:45)
[2018-11-22] MEDS ORDERED: MEPERIDINE HCL/PF INJ 25 MG/1 ML DISP.SYRIN IV PRN (10:45)
[2018-11-22] MEDS ORDERED: MORPHINE SULFATE 10 MG/ML INJ IM PRN ×2 (11:23→12:29)
[2018-11-22] MEDS ORDERED: OXYCODONE-ACETAMINOPHEN 5-325 MG TABLET PO PRN ×2 (11:24)
[2018-11-22] MEDS ORDERED: IBUPROFEN 800 MG TABLET PO PRN ×2 (11:24→12:29)
[2018-11-22] MEDS: FENTANYL CITRATE INJ/PF 100 MCG/2 ML AMPUL ONE ×2 (11:25→11:30)
[2018-11-22] MEDS ORDERED: RINGERS SOLUTION,LACTATED 1,000 ML IV PRN (12:28)
[2018-11-22] MEDS ORDERED: HYDROCODONE/ACETAMINOPHEN 5-325 MG TABLET PO PRN ×2 (12:30)
[2018-11-22] MEDS ORDERED: HYDROCODONE/ACETAMINOPHEN 5-325 MG TABLET ONE (12:45)
--- NOTE | 2018-11-22 13:19 | OPERATIVE REPORT E ---
Operative Report NAME: PETER CASTRO : 1985 AGE: 33Y DATE OF SURGERY: 11/22/2018 ROOM: PREOPERATIVE DIAGNOSIS: UNDESIRED FERTILITY. POSTOPERATIVE DIAGNOSIS: UNDESIRED FERTILITY. SURGEON: WAYNE GREEN M.D. ANESTHESIA: Dr. Arlette Taylor with general. FINDINGS: Normal uterus, tubes, and ovaries. COMPLICATIONS: None. ESTIMATED BLOOD LOSS: 10 mL. SPECIMENS REMOVED: None. PROCEDURE: Laparoscopic tubal cauterization. PROCEDURE IN DETAIL: The patient was taken to the operating room and prepared and draped in a normal sterile fashion in the dorsal lithotomy position. Under sterile conditions, an in-and-out cath was performed of approximately 25 mL of clear urine. The sterile speculum was placed in the vagina. The cervix was prepped with Betadine and grasped on the anterior lip with a single-toothed tenaculum. A Hulka clamp was placed through the cervix for uterine manipulation. The speculum and tenaculum were removed. Gloves were changed and attention was turned to the upper portion of the case where an umbilical skin incision was made with a scalpel and the Veress needle was introduced through the peritoneum and the abdomen was inflated with approximately 2 L of CO2 gas. This Veress needle was removed and the 5 mm port was placed through the incision and a camera was introduced with good visualization. The patient was placed in Trendelenburg. Uterus was manipulated for visualization of the fallopian tubes and they were both found to be normal. Under direct visualization, another 5 mm port was placed in the left lower quadrant. The blunt probe was introduced and this was used to sweep away the bowel. The Kleppinger was then introduced and beginning with the left fallopian tube, this left fallopian was coagulated, approximately 3.5 cm, until complete occlusion was felt to be adequate. This was repeated on the right fallopian tube without difficulty. Once both fallopian tubes were felt to be adequately occluded, the instrument was removed and the lower port was removed with good hemostasis noted at the incision. The camera was removed and the abdomen was deflated through the umbilical port. The skin was closed at both sites using 4-0 Vicryl. The patient tolerated the procedure well. Sponge, lap, and needle counts were correct x2, the Hulka clamp was removed at the conclusion of the case, and the patient was taken to recovery in stable condition. DICTATING PHYSICIAN: WAYNE GREEN M.D. [id number] PHY#: [id number] ID: [id number] JOB#: [id number] ACCT: [id number] cc:WAYNE GREEN M.D. >
[2018-11-22] MEDS ORDERED: HYDROCODONE/ACETAMINOPHEN 5-325 MG TABLET PO ONE (13:45)
[2018-11-22 13:54] VITALS: BP 133/89
== END 2018-11-22 13:45 | disposition home or self-care (01) ==
LOC: OROUT 08:06
PROVIDERS: ATTEND Obstetrics & Gynecology
DX: Z30.2 Encounter for sterilization (principal); Z32.02 Encounter for pregnancy test, result negative; M06.9 Rheumatoid arthritis, unspecified
CPT/HCPCS: 58670; 36415; 85027; 81005; 81025; J2250; J1100; J1885; J3010; J0330; J2405; J2704; S0028; J0131; 851